=== PATIENT | male | born 1995 | race Caucasian/White ===

== ENCOUNTER 2020-05-17 21:22 | Emergency (ER) | payer SELFPAY ==
[~2020-05-17] VITALS: Ht 154 cm; Wt 68.0 kg
[~2020-05-17 21:22] MED LIST: ACHD5005 PO; CEPH500C PO; HYDR1CAP2 PO; TRAM50TA2 PO
[2020-05-17] MEDS ORDERED: NS IV 1000 ML 1,000 ML IV SCH (21:56)
[2020-05-17 22:18] VITALS: BP_SYST 127; BP_SYST 135; BP_SYST 136; BP_DIAS 78; BP_DIAS 86; BP_DIAS 87
[2020-05-17 22:20] LABS: BASOPHILS % (AUTO) 0 % (0-10); EOSINOPHILS # (AUTO) 0.3 10^3/uL (0.0-0.3); EOSINOPHILS % (AUTO) 3 % (0-10); HEMATOCRIT 45 % (40-54); HEMOGLOBIN 15.2 G/DL (13.3-17.7); LYMPHOCYTES # (AUTO) 1.7 X 10^3 (1.0-4.0); LYMPHOCYTES % (AUTO) 16 % (12-44); MEAN CORPUSCULAR HEMOGLOBIN 31 PG (25-34); MEAN CORPUSCULAR HGB CONC 34 G/DL (32-36); MEAN CORPUSCULAR VOLUME 91 FL (80-99); MEAN PLATELET VOLUME 9.4 FL (7.4-10.4); MONOCYTES # (AUTO) 0.9 X 10^3 (0.0-1.0); MONOCYTES % (AUTO) 8 % (0-12); NEUTROPHILS # (AUTO) 8.1 X 10^3 (1.8-7.8); NEUTROPHILS % (AUTO) 74 % (42-75); PLATELET COUNT 382 10^3/uL (130-400)
[2020-05-17 22:41] LABS: BILIRUBIN,URINE NEGATIVE (NEGATIVE); CLARITY,URINE CLEAR; COLOR,URINE YELLOW; GLUCOSE, URINE (UA) NEGATIVE (NEGATIVE); KETONES,URINE NEGATIVE (NEGATIVE); LEUKOCYTE ESTERASE ,URINE NEGATIVE (NEGATIVE); NITRITE,URINE NEGATIVE (NEGATIVE); PROTEIN,URINE NEGATIVE (NEGATIVE)
[2020-05-17 22:42] LABS: ALBUMIN 4.6 GM/DL (3.2-4.5); CHLORIDE 104 MMOL/L (98-107); INR 0.9 (0.8-1.4); POTASSIUM 4.1 MMOL/L (3.6-5.0); PROTHROMBIN TIME PATIENT 12.9 SEC (12.2-14.7); SODIUM 140 MMOL/L (135-145)
[2020-05-17 22:43] LABS: CALCIUM 9.5 MG/DL (8.5-10.1)
[2020-05-17 22:44] LABS: AMYLASE 61 U/L (25-125)
[2020-05-17 22:45] LABS: CARBON DIOXIDE 26 MMOL/L (21-32); GLUCOSE 104 MG/DL (70-105); TOTAL PROTEIN 8.2 GM/DL (6.4-8.2)
[2020-05-17 22:46] LABS: BILIRUBIN,TOTAL 0.5 MG/DL (0.1-1.0)
[2020-05-17 22:47] LABS: BACTERIA,URINE TRACE /HPF; SQUAMOUS EPITHELIAL CELL,UR RARE /HPF
[2020-05-17 22:48] LABS: ALKALINE PHOSPHATASE 86 U/L (40-136); CREATININE SERUM 1.17 MG/DL (0.60-1.30); GFR ESTIMATED > 60
[2020-05-17 22:48] LABS: AMORPHOUS SEDIMENT,UR MOD AMOR PHOSPHATE /LPF
[2020-05-17 22:50] LABS: BUN/CREATININE RATIO 12
[2020-05-17 22:51] LABS: MAGNESIUM 2.2 MG/DL (1.6-2.4); SALICYLATE < 5.0 MG/DL (5.0-20.0)
[2020-05-17 22:52] LABS: ALANINE AMINOTRANSFERASE 27 U/L (0-55)
[2020-05-17 22:52] LABS: AMPHETAMINE SCREEN, URINE POSITIVE (NEGATIVE); BARBITURATE SCREEN URINE NEGATIVE (NEGATIVE); BENZODIAZEPINES SCREEN URINE NEGATIVE (NEGATIVE); CANNABINOID SCREEN, URINE NEGATIVE (NEGATIVE); COCAINE SCREEN URINE NEGATIVE (NEGATIVE); METHADONE STAT NEGATIVE (NEGATIVE); METHAMPHETAMINE SCREEN URINE S POSITIVE (NEGATIVE); OPIATE SCREEN URINE NEGATIVE (NEGATIVE); OXYCODONE STAT NEGATIVE (NEGATIVE); PROPOXYPHENE STAT NEGATIVE (NEGATIVE); TRICYCLIC ANTIDEPRESSANTS SCRE NEGATIVE (NEGATIVE)
[2020-05-17 22:53] LABS: ACETAMINOPHEN < 10 UG/ML (10-30); LIPASE 35 U/L (8-78)
--- NOTE | 2020-05-17 23:04 | ED General ---
General Chief Complaint: Rect Problems Stated Complaint: RECTAL BLEEDING/LIGHT HEADED/LOWER BACK PAIN Nursing Triage Note: PATIENT ARRIVES IN ER WITH C/O SMALL AMOUNT OF BLOOD IN BOWEL. NOTICED IT BEING OFF AND ON FOR 2 MONTHS. ALSO C/O OF LOWER BACK PAIN. Nursing Sepsis Screen: No Definite Risk Source of Information: Patient (SOMEWHAT VAGUE HISTORIAN) History of Present Illness Date Seen by Provider: May 17, 2020 Time Seen by Provider: 21:45 Initial Comments PT ARRIVES VIA POV FROM HOME PT STATES OVER 3 HOURS AGO, HE WAS LIFTING A PIECE OF FURNITURE, AND FELT LIGHTHEADED AND FELL/BRIEFLY PASSED OUT AND WOKE UP ON THE FLOOR OCCURRED AT LEAST 3 HOURS AGO INCIDENT WAS NOT WITNESSED C/O LOWER BACK PAIN SINCE THIS HAPPENED STATES SOMETIME AFTER IT HAPPENED, HE WENT TO THE BATHROOM AND HAD URGE TO HAVE A BM, BUT DID NOT, BUT "HAD A COUPLE OF DROPS OF BLOOD" FROM HIS RECTAL AREA. HE DENIES STRAINING AND DENIES HAVING ANY RECENT CONSTIPATION--STATES HE HAD A NORMAL BM AROUND 1500 TODAY. STATES HE HAD THE SAME THING HAPPEN A COUPLE OF MONTHS AGO, WHERE HE HAD "A COUPLE OF DROPS OF BLOOD" FROM RECTAL AREA DENIES ANY RECTAL PAIN DENIES ANY RECTAL FOREIGN BODIES OR RECTAL INTERCOURSE OR PUTTING ANYTHING IN HIS RECTUM NO CHANGES IN BOWEL HABITS OTHERWISE NO URINARY SYMPTOMS NO PARESHTHESIAS OR MOTOR DEFICITS. NO FEVER OR RECENT ILLNESS NO COUGH/URI SYMPTOMS NO CHEST PAIN OR SHORTNESS OF BREATH NO PALPITATIONS NO SWELLING IN LEGS/ FEET OR PAIN IN CALVES. NO HISTORY OF GI PROBLEMS NO CHRONIC MEDICAL PROBLEMS HAS NOT TAKEN ANYTHING FOR BACK PAIN PT DOES USE METH ON REGULAR BASIS--STATES HE USED IT IV UNTIL 2013 AND NOW JUST SMOKES IT SMOKES MARIJUANA WELL REGULAR CIGARETTES NOW ONLY OCCASIONALLY DRINKS ALCOHOL, STATES HE USED TO DRINK ALOT MORE, BUT USE HAS DECREASED SINCE 2013 PCP: NONE Allergies and Home Medications Allergies Coded Allergies: No Known Drug Allergies (Unverified , 06/20/11) Home Medications Cephalexin Monohydrate 500 Mg Capsule, 1 EACH PO TID, (Reported) Hydrocodone Bit/Acetaminophen 1 Each Tablet, 1 EACH PO Q4H, (Reported) Hydrocodone Bit/Acetaminophen 1 Each Capsule, 1 EACH PO Q6HR PRN Prescribed by: ANDRES CORNELL on 02/14/13 5578 Tramadol Hcl 50 Mg Tablet, 1-2 TAB PO Q4H, (Reported) EVERY 4-6 HRS. NEEDED FOR PAIN Patient Home Medication List Home Medication List Reviewed: Yes Review of Systems Review of Systems Constitutional: see HPI; No chills, No diaphoresis; dizziness; No fever, No ma laise, No weakness EENTM: no symptoms reported Respiratory: no symptoms reported Cardiovascular: no symptoms reported Gastrointestinal: see HPI; No abdominal pain, No constipation, No diarrhea, No dysphagia, No hematemesis, No heartburn, No jaundice, No loss of appetite, No melena, No nausea, No vomiting Genitourinary: no symptoms reported; No dysuria, No frequency, No hematuria, No incontinence, No nocturia, No pain Musculoskeletal: see HPI, back pain; No joint swelling, No muscle pain Skin: no symptoms reported Psychiatric/Neurological: No Symptoms Reported; Denies Headache, Denies N umbness, Denies Paresthesia, Denies Seizure, Denies Tingling, Denies Weakness Hematologic/Lymphatic: See HPI Immunological/Allergic: no symptoms reported Past [id number]-[id number] Hx Patient Social History Alcohol Use: Occasionally Uses (HEAVY USE UNTIL 2013, NOW OCCASIONALLY DRINKS) Recreational Drug Use: Yes (METH USE-USED IT IV UNTIL 2013, NOW SMOKES IT'; THC USE) Drug of Choice: METH USE-+ IV USE UNTIL 2013, NOW SMOKES IT; THC USE Smoking Status: Current Everyday Smoker (< 1/2 PPD, PER PT ) Type Used: Cigarettes 2nd Hand Smoke Exposure: Yes Recent Foreign Travel: No Contact w/Someone Who Travel: No Recent Infectious Disease Expo: No Recent Hopitalizations: No Physical Abuse: No Sexual Abuse: No Mistreated: No Fear: No Immunizations Up To Date Tetanus Booster (TDap): Less than 5yrs Seasonal Allergies Seasonal Allergies: No Past Medical History Surgeries: Yes (RIGHT WRIST LACERATION REPAIR 2013; LEG SURGERY AGE 1-UNKNOWN REASON) Orthopedic Respiratory: Yes Asthma Cardiac: No Neurological: No Genitourinary: No Gastrointestinal: No Musculoskeletal: Yes (PELVIS FX AGE 6-NO SURGERY;UNKNOWN SURGERY TO LEG AT AGE 1) Fractures Endocrine: No HEENT: No Cancer: No Psychosocial: Yes ADD/ADHD, Sleep Difficulties, Anxiety, Depression Integumentary: No Blood Disorders: No Adverse Reaction/Blood Tranf: No Family Medical History No Pertinent Family Hx Physical Exam Vital Signs Vital Signs - First Documented 05/17/20 21:34 Temp 36.6 Pulse 97 Resp 14 B/P (MAP) 159/93 (115) Pulse Ox 100 O2 Delivery Room Air Capillary Refill : NONE Height, Weight, BMI Height: '" Weight: lbs. oz. kg; 28.00 BMI Method:Stated General Appearance: No Apparent Distress, WD/WN, Thin HEENT: PERRL/EOMI Neck: Normal Inspection Respiratory: Normal Breath Sounds, No Accessory Muscle Use, No Respiratory Distress Cardiovascular: Regular Rate, Rhythm, No Edema, No JVD, No Murmur, Normal Peripheral Pulses Gastrointestinal: Normal Bowel Sounds, No Organomegaly, No Pulsatile Mass, Non Tender, Soft Rectal: Normal Exam, Normal Rectal Tone, Heme Negative Stool Back: Normal Inspection, No CVA Tenderness, No Vertebral Tenderness, Other (UNABLE TO LOCALIZE AREA OF REPORTED PAIN BY MYSELF OR BY PT. 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 Norm as Tested Skin: Normal Color, Warm/Dry Progress/Results/Core Measures Suspected Sepsis Recent Fever Within 48 Hours: No Infection Criteria Present: None New/Unexplained Altered Menta: No Sepsis Screen: No Definite Risk SIRS Temperature: Pulse: 112 Respiratory Rate: 14 Laboratory Tests 05/17/20 22:00: White Blood Count 11.0 Blood Pressure 136 /86 Mean: 103 Laboratory Tests 05/17/20 22:00: Creatinine 1.17, INR Comment 0.9, Platelet Count 382, Total Bilirubin 0.5 Results/Orders Lab Results Laboratory Tests Test 05/17/20 21:48 05/17/20 22:00 Range/Units Urine Color YELLOW Urine Clarity CLEAR Urine pH 7.0 5-9 Urine Specific [place] 1.020 1.016-1.022 Urine Protein NEGATIVE NEGATIVE Urine Glucose (UA) NEGATIVE NEGATIVE Urine Ketones NEGATIVE NEGATIVE Urine Nitrite NEGATIVE NEGATIVE Urine Bilirubin NEGATIVE NEGATIVE Urine Urobilinogen 1.0 < = 1.0 MG/DL Urine Leukocyte Esterase NEGATIVE NEGATIVE Urine RBC (Auto) NEGATIVE NEGATIVE Urine RBC NONE /HPF Urine WBC NONE /HPF Urine Squamous Epithelial Cells RARE /HPF Urine Crystals PRESENT H /LPF Urine Amorphous Sediment MOD SAVANNAH PHOSPHATE H /LPF Urine Bacteria TRACE /HPF Urine Casts NONE /LPF Urine Mucus NEGATIVE /LPF Urine Culture Indicated NO Urine Opiates Screen NEGATIVE NEGATIVE Urine Oxycodone Screen NEGATIVE NEGATIVE Urine Methadone Screen NEGATIVE NEGATIVE Urine Propoxyphene Screen NEGATIVE NEGATIVE Urine Barbiturates Screen NEGATIVE NEGATIVE Ur Tricyclic Antidepressants Screen NEGATIVE NEGATIVE Urine Phencyclidine Screen NEGATIVE NEGATIVE Urine Amphetamines Screen POSITIVE H NEGATIVE Urine Methamphetamines Screen POSITIVE H NEGATIVE Urine Benzodiazepines Screen NEGATIVE NEGATIVE Urine Cocaine Screen NEGATIVE NEGATIVE Urine Cannabinoids Screen NEGATIVE NEGATIVE White Blood Count 11.0 4.3-11.0 10^3/uL Red Blood Count 4.90 4.35-5.85 10^6/uL Hemoglobin 15.2 13.3-17.7 G/DL Hematocrit 45 40-54 % Mean Corpuscular Volume 91 80-99 FL Mean Corpuscular Hemoglobin 31 25-34 PG Mean Corpuscular Hemoglobin Concent 34 32-36 G/DL Red Cell Distribution Width 12.9 10.0-14.5 % Platelet Count 382 130-400 10^3/uL Mean Platelet Volume 9.4 7.4-10.4 FL Neutrophils (%) (Auto) 74 42-75 % Lymphocytes (%) (Auto) 16 12-44 % Monocytes (%) (Auto) 8 0-12 % Eosinophils (%) (Auto) 3 0-10 % Basophils (%) (Auto) 0 0-10 % Neutrophils # (Auto) 8.1 H 1.8-7.8 X 10^3 Lymphocytes # (Auto) 1.7 1.0-4.0 X 10^3 Monocytes # (Auto) 0.9 0.0-1.0 X 10^3 Eosinophils # (Auto) 0.3 0.0-0.3 10^3/uL Basophils # (Auto) 0.0 0.0-0.1 10^3/uL Prothrombin Time 12.9 12.2-14.7 SEC INR Comment 0.9 0.8-1.4 Activated Partial Thromboplast Time 29 24-35 SEC Sodium Level 140 135-145 MMOL/L Potassium Level 4.1 3.6-5.0 MMOL/L Chloride Level 104 98-107 MMOL/L Carbon Dioxide Level 26 21-32 MMOL/L Anion Gap 10 5-14 MMOL/L Blood Urea Nitrogen 14 7-18 MG/DL Creatinine 1.17 0.60-1.30 MG/DL Estimat Glomerular Filtration Rate > 60 BUN/Creatinine Ratio 12 Glucose Level 104 70-105 MG/DL Calcium Level 9.5 8.5-10.1 MG/DL Corrected Calcium 8.5-10.1 MG/DL Magnesium Level 2.2 1.6-2.4 MG/DL Total Bilirubin 0.5 0.1-1.0 MG/DL Aspartate Amino Transf (AST/SGOT) 19 5-34 U/L Alanine Aminotransferase (ALT/SGPT) 27 0-55 U/L Alkaline Phosphatase 86 40-136 U/L Total Protein 8.2 6.4-8.2 GM/DL Albumin 4.6 H 3.2-4.5 GM/DL Amylase Level 61 25-125 U/L Lipase 35 8-78 U/L Salicylates Level < 5.0 L 5.0-20.0 MG/DL Acetaminophen Level < 10 L 10-30 UG/ML Serum Alcohol < 10 <10 MG/DL My Orders Orders - MEREDITH CUMMINGS DO Ed Iv/Invasive Line Start (05/17/20 21:56) Monitor-Rhythm Ecg Trace Only (05/17/20 21:56) Orthostatic Vital Signs (Adult (05/17/20 21:56) Acetaminophen (05/17/20 21:56) Alcohol (05/17/20 21:56) Amylase (05/17/20 21:56) Cbc With Automated Diff (05/17/20 21:56) Comprehensive Metabolic Panel (05/17/20 21:56) Drug Screen Stat (Urine) (05/17/20 21:56) Lipase (05/17/20 21:56) Magnesium (05/17/20 21:56) Protime With Inr (05/17/20 21:56) Partial Thromboplastin Time (05/17/20 21:56) Ua Culture If Indicated (05/17/20 21:56) Ed Iv/Invasive Line Start (05/17/20 21:56) Ns Iv 1000 Ml (Sodium Chloride 0.9%) (05/17/20 21:56) Salicylate (05/17/20 21:56) Ct Abdomen/Pelvis W (05/17/20 22:50) Ct Lumbar Spine Wo (05/17/20 22:50) Fecal Occult Bedside (05/17/20 23:12) Iohexol Injection (Omnipaque 350 Mg/Ml 1 (05/17/20 23:45) Received Contrast (Hold Metformin- Contr (05/17/20 23:45) Sodium Chloride Flush (Catheter Flush Sy (05/17/20 23:45) Ns (Ivpb) (Sodium Chloride 0.9% Ivpb Bag (05/17/20 23:45) Medications Given in ED Current Medications Medications Dose Ordered Sig/Gypsy Route Start Time Stop Time Status Last Admin Dose Admin Iohexol 100 ml ONCE ONCE IV 05/17/20 23:45 05/17/20 23:46 DC 05/17/20 23:36 85 ML Sodium Chloride 10 ml NEEDED PRN IV 05/17/20 23:45 05/18/20 00:14 DC 05/17/20 23:36 10 ML Sodium Chloride 100 ml ONCE ONCE IV 05/17/20 23:45 05/17/20 23:46 DC 05/17/20 23:36 80 ML Vital Signs/I&O 05/17/20 05/17/20 05/18/20 21:34 22:18 00:09 Temp 36.6 36.6 Pulse 97 84 103 87 112 Resp 14 16 B/P (MAP) 159/93 (115) 135/78 (97) 136/86 (103) 127/87 (100) 136/86 (103) Pulse Ox 100 100 O2 Delivery Room Air Room Air 05/18/20 00:00 Intake Total 1000 ml Balance 1000 ml Capillary Refill : NONE Blood Pressure Mean: 103 Progress Note : Progress Note UNEVENTFUL ER STAY NO COMPLAINTS OF ANY KIND NO RECTAL BLEEDING Diagnostic Imaging Comments CT ABDOMEN/PELVIS--NO ACUTE PROCESS CT LUMBAR SPINE--NO ACUTE PROCESS, MILD LUMBAR DEGENERATIVE DISC DISEASE PER STAT RAD VIA FAX AT [id number] Reviewed: Reviewed by Me Departure Impression Primary Impression: SELF REPORTED RECTAL BLEEDING Additional Impressions: QUESTIONABLE SYNCOPAL EPISODE Low back pain Illicit drug use Disposition: 01 HOME, SELF-CARE Condition: Stable Departure-Patient Inst. Referrals: [facility] (PCP/Family) Primary Care Physician Patient Instructions: Bloody Stools, Adult (DC), Drug Abuse and Drug Addiction (DC), Low Back Pain (DC), Methamphetamine, Syncope (Fainting) (DC) Add. Discharge Instructions: NO DRUGS!!!!! LOTS OF CLEAR LIQUIDS--WATER, BROTH, JELLO, GATORADE FOLLOW UP WITH [facility] THIS WEEK FOR FURTHER CARE All discharge instructions reviewed with patient and/or family. Voiced understanding. MEREDITH CUMMINGS DO May 17, 2020 23:04
[2020-05-17] MEDS ORDERED: IOHEXOL 350 MG/ML 100 ML (OMNIPAQUE 350) VIAL IV ONE (23:45)
[2020-05-17] MEDS ORDERED: HOLD METFORMIN - RECEIVED CONTRAST 20 ML VIAL IV SCH (23:45)
[2020-05-17] MEDS ORDERED: CATHETER FLUSH 10 ML SYR IV PRN (23:45)
[2020-05-17] MEDS ORDERED: NS 100 ML (IVPB) BAG IV ONE (23:45)
[2020-05-18 00:09] VITALS: BP 136/86
--- NOTE | 2020-05-18 06:59 | Diagnostic Imaging Report ---
PROCEDURE: CT lumbar spine without contrast. TECHNIQUE: Multiple contiguous axial images were obtained through the lumbar spine without the use of intravenous contrast. Sagittal and coronal reformations were then performed. Auto Exposure Controls were utilized during the CT exam to meet ALARA standards for radiation dose reduction. INDICATION: Blood in bowel, low back pain. No prior studies for comparison. Lumbar vertebral body height and alignment are well-maintained. Mild concentric disc bulge in the lower 3 lumbar levels. No focal lateralizing disc herniation. The visualized lung bases are clear. No fracture, compression deformity or focal bone lesion. No focal bone destruction or sclerosis. Upper sacrum and SI joints are intact. IMPRESSION: 1. Mild degenerative disc disease in the lower 3 lumbar levels but no fracture, compression deformity or malalignment. I agree with the preliminary teleradiology report. Dictated by: Dictated on workstation # [id number]
--- NOTE | 2020-05-18 07:00 | Diagnostic Imaging Report ---
PROCEDURE: CT abdomen and pelvis with contrast. TECHNIQUE: Multiple contiguous axial images were obtained through the abdomen and pelvis after administration of intravenous contrast. Auto Exposure Controls were utilized during the CT exam to meet ALARA standards for radiation dose reduction. INDICATION: Bloody stool. Lower back pain. COMPARISON: None FINDINGS: Included portions of the lung bases are clear. CT ABDOMEN: Normal appendix is identified. Small bowel loops are nondistended. Moderate air and stool is noted scattered throughout the colon. Kidneys, adrenal glands, spleen, pancreas, and liver have a normal CT appearance. There is no loculated fluid collection, free fluid or free air within the abdomen. No abnormal mesenteric or intervertebral adenopathy is identified. Osseous structures show no acute abnormalities. CT PELVIS: Urinary bladder is grossly unremarkable. There is no loculated fluid collection, free fluid or free air within the pelvis. No abnormal adenopathy is seen. Osseous structures show no acute abnormalities. IMPRESSION: 1. No acute abnormalities are seen within the abdomen or pelvis. 2. Moderate colonic air and stool. Please correlate for constipation. Dictated by: Dictated on workstation # [id number]
== END 2020-05-18 00:14 | disposition home or self-care (01) ==
LOC: EDUNIT# 21:22 → ER 21:25
DX: M54.5 Low back pain (principal); K62.5 Hemorrhage of anus and rectum; F12.90 Cannabis use, unspecified, uncomplicated; F15.90 Other stimulant use, unspecified, uncomplicated; F17.210 Nicotine dependence, cigarettes, uncomplicated; W18.39XA Other fall on same level, initial encounter
CPT/HCPCS: 72131; 74177; 80053; 80306; 81000; 82150; 82274; 83690; 83735; 85025; 85610; 85730; 93041; 99284; G0480 ×3; 36415; 80320; 80329